=== PATIENT | male | born 1985 | race African-American/Black ===

== ENCOUNTER 2020-07-26 20:25 | Inpatient (IN) | payer OTHER ==
[2020-07-26] MEDS ORDERED: predniSONE 20 MG TABLET (UD) PO ONE (20:28)
[2020-07-26] MEDS ORDERED: ONDANSETRON *ODT* 4 MG TABLET SL ONE (20:28)
[2020-07-26] MEDS ORDERED: FAMOTIDINE 20 MG TABLET PO ONE (20:28)
--- NOTE | 2020-07-26 20:28 | PDOC ---
History of Present Illness - General Chief Complaint: Allergic Reaction Stated Complaint: ALLERGIC REACTION Time Seen by Provider: 07/26/20 20:28 History Source: Patient Exam Limitations: No Limitations - History of Present Illness Initial Comments: 34 yo M history allergies to all nuts presents after eating vegan mac and cheese. He states that his friend's mom made it, and when he asked, the friend said there were no nuts. However, he started to develop stomach upset, and when he asked the person who cooked it, they said there were nuts in it. He has history of nut allergy that typically presents with GI upset and burning, but no airway compromise. He has never had anaphylaxis, does not have an epi pen, and has never needed one. He said his voice sounded raspy before he took some children's benadryl prior to arrival. However, denies throat swelling, SOB, rash. He forced himself to vomit prior to arrival "to clear it out". Past History - Medical History Allergies/Adverse Reactions: Allergies Allergy/AdvReac Type Severity Reaction Status Date / Time peanut Allergy Intermediate Itching Verified 07/26/20 20:27 TREE NUTS Allergy Intermediate Itching Uncoded 06/28/12 17:35 Home Medications: Ambulatory Orders No Home Medications 0 dose .ROUTE UTDICT 06/28/12 Asthma: Yes (CHILDHOOD) - Psycho-Social/Smoking History Smoking Status: No Smoking History: Never smoked Number of Cigarettes Smoked Daily: 0 Review of Systems - Review of Systems Able to Perform ROS?: Yes Comments:: GENERAL/CONSTITUTIONAL: No fever or chills. No weakness. HEAD, EYES, EARS, NOSE AND THROAT: No change in vision. No ear pain or discharge. No sore throat. CARDIOVASCULAR: No chest pain or shortness of breath. RESPIRATORY: No cough, wheezing, or hemoptysis. GASTROINTESTINAL: +Nausea. No diarrhea or constipation. +Burning in stomach. +Self-induced vomiting. GENITOURINARY: No dysuria, frequency, or change in urination. MUSCULOSKELETAL: No joint or muscle swelling or pain. No neck or back pain. SKIN: No rash. NEUROLOGIC: No headache, vertigo, loss of consciousness, or change in strength/sensation. ENDOCRINE: No increased thirst. No abnormal weight change. HEMATOLOGIC/LYMPHATIC: No anemia, easy bleeding, or history of blood clots. ALLERGIC/IMMUNOLOGIC: No hives or skin allergy. *Physical Exam - Physical Exam GENERAL: Awake, alert, and fully oriented, in no acute distress. Obese HEAD: No signs of trauma EYES: PERRLA, EOMI, sclera anicteric, conjunctiva clear ENT: Auricles normal inspection, hearing grossly normal, nares patent, oropharynx clear without exudates. Moist mucosa. Airway patent, no edema noted NECK: Normal ROM, supple, no lymphadenopathy, JVD, or masses LUNGS: Breath sounds equal, clear to auscultation bilaterally. No wheezes, and no crackles HEART: Regular rate and rhythm, normal S1 and S2, no murmurs, rubs or gallops ABDOMEN: Soft, nontender, normoactive bowel sounds. No guarding, no rebound. No masses EXTREMITIES: Normal range of motion, no edema. No clubbing or cyanosis. No cor ds, erythema, or tenderness NEUROLOGICAL: Cranial nerves II through XII grossly intact. Normal speech, normal gait. Motor and sensation intact SKIN: Warm, dry, normal turgor, no rashes or lesions noted. ED Treatment Course - LABORATORY CBC & Chemistry Diagram: 07/26/20 23:05 07/26/20 23:27 Medical Decision Making - Medical Decision Making 07/26/20 20:32 Pt given pepcid, prednisone, and [id number] for his symptoms. No evidence of airway compromise. Will cont to monitor. 07/26/20 22:59 Pt with continued burning in his lower abdomen. At this point he is also complaining of feeling sweaty. Nausea did not improve with zofran ODT. Initial suspicion was not for anything cardiac given the location of the abdominal symptoms. However, now with this change in status, cardiac enzymes drawn and sent. Will check EKG, chest xray. 07/27/20 00:04 First troponin is slightly elevated. Case d/w cardiology Dr. Hall- EKG shows no ST changes at present. Will cont to monitor patient. Will give aspirin. Plan for admission. Will page hospitalist. 07/27/20 00:10 Results d/w patient. Giving ASA at present. 07/27/20 00:21 Case accepted for admission by hospitalist. 07/27/20 00:47 COVID swab sent to lab. Of note, patient states he tested negative for COVID-19 2 days ago. 07/27/20 04:11 Second troponin negative. Patient transported upstairs. Discharge - Discharge Information Problems reviewed: Yes Clinical Impression/Diagnosis: Troponin level elevated Condition: Guarded - Admission Yes - Follow up/Referral - Patient Discharge Instructions - Post Discharge Activity
--- OUTSIDE RECORDS SUMMARY | 2020-07-26 20:32 | XMS ---
:1985 Author Organization [facility] Care Team Providers Name Role Phone JOSE CARLOS Unavailable Unavailable Re-disclosure Warning The records that you are about to access may contain information from federally- assisted alcohol or drug abuse programs. If such information is present, then the following federally mandated warning applies: This information has been disclosed to you from records protected by federal confidentiality rules (42 CFR part 2). The federal rules prohibit you from making any further disclosure of this information unless further disclosure is expressly permitted by the written consent of the person to whom it pertains or as otherwise permitted by 42 CFR part 2. A general authorization for the release of medical or other information is NOT sufficient for this purpose. The Federal rules restrict any use of the information to criminally investigate or prosecute any alcohol or drug abuse patient.The records that you are about to access may contain highly sensitive health information, the redisclosure of which is protected by Article 27-F of the [facility] Public Health law. If you continue you may haveaccess to information: Regarding HIV / AIDS; Provided by facilities licensed or operated by the [facility] Office of Mental Health; or Provided by the [facility] Office for People With Developmental Disabilities. If such information is present, then the following [facility] mandated warning applies: This information has been disclosed to you from confidential records which are protected by state law. State law prohibits you from making any further disclosure of this information without the specific written consent of the person to whom it pertains, or as otherwise permitted by law. Any unauthorized further disclosure in violation of state law may result in a fine or skilled nursing sentence or both. A general authorization for the release of medical or other information is NOT sufficient authorization for further disclosure. Encounters Encounter Providers Location Date Indications Data Source(s ) Outpatient Attender: 02/05/2020 Z03.818 [facility] brittany KARAdmitter: JOSE CARLOS 03:30:00 [facility] [employer] Z03.818 Insurance Providers Payer name Policy type Policy ID Covered Covered constitution party's Policy P santos / Coverage constitution party ID relationship to [employer] Inf ormation type navarrete [employer] [id number] SP [id number] HEALTHCARE HMO 1 Problems, Conditions, and Diagnoses Code Display Name Description Problem Type Effective Data Sour ce(s) Dates Z03.818 Encounter for ENCNTR FOR OBS Diagnosis 02/05/2020 [facility] observation for FOR SUSP EXPSR TO 03:30:00 [facility] suspected OTH BIOLG AGENTS [employer] exposure to other RULED OUT biological agents ruled out Results ID Date Data Source [id number] 02/05/2020 12:00:00 AM [facility] Name Value Range Interpretation Code Description Data Martita rce(s) Supporting Document(s ) 2019-nCoV [facility] RNA XXX ABDULLAHI+probe- Imp This lab was ordered by [facility] and reported by [employer] Procedure
[2020-07-26] MEDS ORDERED: FAMOTIDINE 20 MG TABLET ONE (20:33)
[2020-07-26] MEDS ORDERED: predniSONE 20 MG TABLET (UD) ONE (20:34)
[2020-07-26] MEDS ORDERED: ONDANSETRON *ODT* 4 MG TABLET ONE (20:34)
[2020-07-26] MEDS ORDERED: MAG HYDROX/AL HYDROX/SIMETH 30 ML UNIT-DOSE CUP PO ONE (20:53)
[2020-07-26] MEDS ORDERED: MAG HYDROX/AL HYDROX/SIMETH 30 ML UNIT-DOSE CUP ONE (20:54)
[2020-07-26] MEDS ORDERED: PANTOPRAZOLE SODIUM 40 MG VIAL IVPUSH ONE (22:08)
[2020-07-26] MEDS ORDERED: SODIUM CHLORIDE 1,000 ML IV STA (22:08)
[2020-07-26] MEDS ORDERED: PANTOPRAZOLE SODIUM 40 MG VIAL ONE (22:28)
[2020-07-26] MEDS ORDERED: ONDANSETRON 4 MG/2 ML VIAL IVPUSH ONE (22:59)
[2020-07-26] MEDS ORDERED: ONDANSETRON 4 MG/2 ML VIAL ONE (23:04)
[2020-07-26 23:11] LABS: BASO % 1.9 % (0-2.0); EOS % 1.3 % (0-4.5); HEMATOCRIT 39.9 % (35.4-49); HEMOGLOBIN 13.3 GM/dl (11.7-16.9); MCH 28.6 pg (25.7-33.7); MCHC 33.4 g/dl (32.0-35.9); MEAN CELL VOLUME 85.6 fl (80-96); MEAN PLT VOLUME 8.2 fl (7.5-11.1); MONO % 4.5 % (3.8-10.2); NEUT % 83.3 % (42.8-82.8); PLATELET COUNT 306 K/MM3 (134-434); RBC 4.66 M/mm3 (4.00-5.60); RDW 13.2 % (11.9-15.9)
[2020-07-26 23:29] LABS: ALBUMIN 3.9 g/dl (3.4-5.0); BILIRUBIN,TOTAL 0.5 mg/dl (0.2-1); POTASSIUM 3.9 mmol/L (3.5-5.1); TOT PROT 6.8 g/dl (6.4-8.2)
[2020-07-26] MEDS ORDERED: ASPIRIN 81 MG CHEWABLE TABLETS PO ONE (23:55)
[2020-07-27] MEDS ORDERED: ASPIRIN 81 MG CHEWABLE TABLETS ONE (00:10)
[2020-07-27] MEDS ORDERED: ASPIRIN 81 MG CHEWABLE TABLETS PO ONE (00:10)
--- OUTSIDE RECORDS SUMMARY | 2020-07-27 02:25 | XMS ---
[...] is protected by Article 27-F of the [facility] Public Health law. If you continue you may haveaccess to information: Regarding HIV / AIDS; Provided by facilities licensed or operated by the [facility] Office of Mental Health; or Provided by the [facility] Office for People With Developmental Disabilities. If such information is present, then the following [facility] mandated warning applies: This information has been [...] law may result in a fine or fdc sentence or both. A general authorization for the release of medical or other information is NOT sufficient authorization for further disclosure. Encounters Encounter Providers Location Date Indications Data Source(s ) Outpatient Attender: 02/05/2020 Z03.818 [facility] brittany KARAdmitter: JOSE CARLOS 03:30:00 [facility] [employer] Z03.818 Insurance Providers Payer name Policy type Policy ID Covered Covered republican's Policy P santos / Coverage republican ID relationship to [employer] Inf ormation type navarrete [employer] [id number] SP [id number] 01 HEALTHCARE HMO 1 Problems, Conditions, and Diagnoses Code Display Name Description Problem Type Effective Data Sour ce(s) Dates Z03.818 Encounter for ENCNTR FOR OBS Diagnosis 02/05/2020 [facility] observation for FOR SUSP EXPSR TO 03:30:00 AM [facility] suspected OTH BIOLG AGENTS [employer] exposure to other RULED OUT biological agents ruled out Results ID Date Data Source [id number] 02/05/2020 12:00:00 AM [facility] Name Value Range Interpretation Code Description Data Martita rce(s) Supporting Document(s ) 2019-nCoV [facility] RNA XXX ABDULLAHI+probe- Imp This lab was ordered by [facility] and reported by [employer] Procedure
[2020-07-27 04:13] VITALS: BMI 42.6
[2020-07-27 07:39] VITALS: BP 125/53; PULSE 64; TEMP 97.6
--- NOTE | 2020-07-27 09:11 | HP ---
CHIEF COMPLAINT: Allergic reaction to nut ingestion HISTORY OF PRESENT ILLNESS: 34 year-old male with a PMH significant for nut allergies, presented to the ED for evaluation of stomach upset. Patient ate a meal of vegan mac and cheese prepared by his friend's mom and was initally assured there were no nuts in the dish. After eating he developed stomach and esophageal burning. He then learned there were in fact nuts in the dish. Patient has had 2 or 3 accidental ingestions of nuts this year and this reaction was the worst. Patient denies having had any difficulty breathing but his voice was raspy and he took some benadryl prior to arrival to the ED. ER course was notable for: (1) Troponin 0.31-->negative-->negative (2) Treated with mylanta, ASA, pepcid, protonix, zofran, prednisone, and NS x 1L Recent Travel: No PAST MEDICAL HISTORY: Asthma childhood PAST SURGICAL HISTORY: None reported Social History: works at [employer] Smoking: no Alcohol: no Drugs: no Family history: reviewed and non-contributory Allergies peanut Allergy (Intermediate, Verified 07/26/20 20:27) Itching TREE NUTS Allergy (Intermediate, Uncoded 06/28/12 17:35) Itching HOME MEDICATIONS: Home Medications Medication Instructions Recorded No Home Medications 0 dose .ROUTE UTDICT 06/28/12 REVIEW OF SYSTEMS CONSTITUTIONAL: Absent: fever, chills, diaphoresis, generalized weakness, malaise, loss of appetite, weight change HEENT: Absent: rhinorrhea, nasal congestion, throat pain, throat swelling, difficulty swallowing, mouth swelling, ear pain, eye pain, visual changes CARDIOVASCULAR: Absent: chest pain, syncope, palpitations, irregular heart rate, lightheadedness, peripheral edema RESPIRATORY: Absent: cough, shortness of breath, dyspnea with exertion, orthopnea, wheezing, stridor, hemoptysis GASTROINTESTINAL: +abdominal and esophageal burning-type pain Absent: abdominal pain, abdominal distension, nausea, vomiting, diarrhea, constipation, melena, hematochezia GENITOURINARY: Absent: dysuria, frequency, urgency, hesitancy, hematuria, flank pain, genital pain MUSCULOSKELETAL: Absent: myalgia, arthralgia, joint swelling, back pain, neck pain SKIN: Absent: rash, itching, pallor HEMATOLOGIC/IMMUNOLOGIC: Absent: easy bleeding, easy bruising, lymphadenopathy, frequent infections ENDOCRINE: Absent: unexplained weight gain, unexplained weight loss, heat intolerance, cold intolerance NEUROLOGIC: Absent: headache, focal weakness or paresthesias, dizziness, unsteady gait, seizure, mental status changes, bladder or bowel incontinence PSYCHIATRIC: Absent: anxiety, depression, suicidal or homicidal ideation, hallucinations. PHYSICAL EXAMINATION Vital Signs - 24 hr 07/26/20 07/26/20 07/27/20 20:28 23:40 04:06 Temperature 98 F 99.8 F H 97.9 F Pulse Rate 108 H 81 Pulse Rate [ 86 Right] Respiratory 16 18 Rate Blood Pressure 157/111 H 142/93 Blood Pressure 136/90 [Right] O2 Sat by Pulse 100 99 96 Oximetry (%) 07/27/20 07/27/20 04:08 07:38 Temperature 97.6 F Pulse Rate 64 Pulse Rate [ 74 Right] Respiratory 17 16 Rate Blood Pressure 125/53 L Blood Pressure 137/94 [Right] O2 Sat by Pulse 98 96 Oximetry (%) GENERAL: Awake, alert, and fully oriented, in no acute distress. HEAD: Normal with no signs of trauma. EYES: Pupils equal, round and reactive to light, extraocular movements intact, sclera anicteric, conjunctiva clear. No lid lag. EARS, NOSE, THROAT: Ears normal, nares patent, oropharynx clear without exudates. Moist mucous membranes. NECK: Normal range of motion, supple without lymphadenopathy, JVD, or masses. LUNGS: Breath sounds equal, clear to auscultation bilaterally. No wheezes, and no crackles. No accessory muscle use. HEART: Regular rate and rhythm, normal S1 and S2 without murmur, rub or gallop. ABDOMEN: Soft, nontender, not distended, normoactive bowel sounds, no guarding, no rebound, no masses. No hepatomegaly or splenomegaly. MUSCULOSKELETAL: Normal range of motion at all joints. No bony deformities or tenderness. No CVA tenderness. UPPER EXTREMITIES: 2+ pulses, warm, well-perfused. No cyanosis. No clubbing. No peripheral edema. LOWER EXTREMITIES: 2+ pulses, warm, well-perfused. No calf tenderness. No peripheral edema. NEUROLOGICAL: Cranial nerves II-XII intact. Normal speech. Laboratory Results - last 24 hr 07/26/20 07/26/20 07/26/20 23:02 23:05 23:27 WBC 11.0 H RBC 4.66 Hgb 13.3 Hct 39.9 MCV 85.6 MCH 28.6 MCHC 33.4 RDW 13.2 Plt Count 306 MPV 8.2 Absolute Neuts (auto) 9.2 Neutrophils % 83.3 H Lymphocytes % 9.0 Monocytes % 4.5 Eosinophils % 1.3 Basophils % 1.9 Sodium 137 Potassium 3.9 Chloride 106 Carbon Dioxide 22 Anion Gap 9 BUN 19.0 H Creatinine 1.0 Est GFR (CKD-EPI)AfAm 113.31 Est GFR (CKD-EPI)NonAf 97.76 Random Glucose 119 H Calcium 9.0 Total Bilirubin 0.5 AST 23 ALT 36 Alkaline Phosphatase 46 Creatine Kinase 98 Troponin I 0.31 H Total Protein 6.8 Albumin 3.9 Lipase 92 07/27/20 01:55 WBC RBC Hgb Hct MCV MCH MCHC RDW Plt Count MPV Absolute Neuts (auto) Neutrophils % Lymphocytes % Monocytes % Eosinophils % Basophils % Sodium Potassium Chloride Carbon Dioxide Anion Gap BUN Creatinine Est GFR (CKD-EPI)AfAm Est GFR (CKD-EPI)NonAf Random Glucose Calcium Total Bilirubin AST ALT Alkaline Phosphatase Creatine Kinase Troponin I < 0.02 Total Protein Albumin Lipase ASSESSMENT/PLAN: 34 year-old male with a PMH significant for nut allergies, admitted for severe allergic reaction following accidental nut ingestion. Anaphylaxis secondary to nut ingestion --treated with mylanta, ASA, pepcid, protonix, zofran, prednisone, and NS x 1L --observed overnight, no rebound symptoms --lengthy conversation with patient about need to carry Epipen at all times Family Medical History Family History: As Documented Visit type - Emergency Visit Emergency Visit: Yes ED Registration Date: 07/27/20 Care time: The patient presented to the Emergency Department on the above date and was hospitalized for further evaluation of their emergent condition. - New Patient This patient is new to me today: Yes Date on this admission: 07/27/20 - Critical Care Critical Care patient: No
--- NOTE | 2020-07-27 11:52 | EKG ---
Test Reason : Blood Pressure : / mmHG Vent. Rate : 087 BPM Atrial Rate : 087 BPM P-R Int : 136 ms QRS Dur : 084 ms QT Int : 380 ms P-R-T Axes : 066 015 035 degrees QTc Int : 457 ms NORMAL SINUS RHYTHM POSSIBLE LEFT ATRIAL ENLARGEMENT BORDERLINE ECG NO PREVIOUS ECGS AVAILABLE Confirmed by DELFINA GOODRICH, VALERI ([id number]) on 07/27/2020 11:51:55 AM Referred By: DR ANGLIN Confirmed By:VALERI MATHIS MD
--- NOTE | 2020-07-27 12:34 | DS ---
Physical Exam: SUBJECTIVE: Patient seen and examined. Feels well. No wheezing. No abdominal pain. Tolerating food. OBJECTIVE: Vital Signs Period Temp Pulse Resp BP Sys/Doherty Pulse Ox Last 24 Hr 97.6 F-99.8 F 64-108 16-18 125-157/53-111 96-100 PHYSICAL EXAM GENERAL: The patient is awake, alert, and fully oriented, in no acute distress. HEAD: Normal with no signs of trauma. EYES: PERRL, extraocular movements intact, sclera anicteric, conjunctiva clear. ENT: Ears normal, nares patent, oropharynx clear without exudates, moist mucous membranes. NECK: Trachea midline, full range of motion, supple. LUNGS: Breath sounds equal, clear to auscultation bilaterally, no wheezes, no crackles, no accessory muscle use. HEART: Regular rate and rhythm, S1, S2 without murmur, rub or gallop. ABDOMEN: Soft, nontender, nondistended, normoactive bowel sounds, no guarding, no rebound, no hepatosplenomegaly, no masses. EXTREMITIES: 2+ pulses, warm, well-perfused, no edema. NEUROLOGICAL: Cranial nerves II through XII grossly intact. Normal speech, gait not observed. LABS Laboratory Results - last 24 hr 07/26/20 07/26/20 07/26/20 23:02 23:05 23:27 WBC 11.0 H RBC 4.66 Hgb 13.3 Hct 39.9 MCV 85.6 MCH 28.6 MCHC 33.4 RDW 13.2 Plt Count 306 MPV 8.2 Absolute Neuts (auto) 9.2 Neutrophils % 83.3 H Lymphocytes % 9.0 Monocytes % 4.5 Eosinophils % 1.3 Basophils % 1.9 Sodium 137 Potassium 3.9 Chloride 106 Carbon Dioxide 22 Anion Gap 9 BUN 19.0 H Creatinine 1.0 Est GFR (CKD-EPI)AfAm 113.31 Est GFR (CKD-EPI)NonAf 97.76 Random Glucose 119 H Calcium 9.0 Total Bilirubin 0.5 AST 23 ALT 36 Alkaline Phosphatase 46 Creatine Kinase 98 Troponin I 0.31 H Total Protein 6.8 Albumin 3.9 Lipase 92 07/27/20 01:55 WBC RBC Hgb Hct MCV MCH MCHC RDW Plt Count MPV Absolute Neuts (auto) Neutrophils % Lymphocytes % Monocytes % Eosinophils % Basophils % Sodium Potassium Chloride Carbon Dioxide Anion Gap BUN Creatinine Est GFR (CKD-EPI)AfAm Est GFR (CKD-EPI)NonAf Random Glucose Calcium Total Bilirubin AST ALT Alkaline Phosphatase Creatine Kinase Troponin I < 0.02 Total Protein Albumin Lipase HOSPITAL COURSE: Date of Admission:07/27/20 Date of Discharge: 07/27/20 Pre hospital course 34 year-old male with a PMH significant for nut allergies, presented to the ED for evaluation of stomach upset. Patient ate a meal of vegan mac and cheese prepared by his friend's mom and was initally assured there were no nuts in the dish. After eating he developed stomach and esophageal burning. He then learned there were in fact nuts in the dish. Patient has had 2 or 3 accidental ingestions of nuts this year and this reaction was the worst. Patient denies having had any difficulty breathing but his voice was raspy and he took some b enadryl prior to arrival to the ED. ER course (2) Treated with mylanta, ASA, pepcid, protonix, zofran, prednisone, and NS x 1L Subsequent hospital course 34 year-old male with a PMH significant for nut allergies, admitted for severe allergic reaction following accidental nut ingestion. Anaphylaxis secondary to nut ingestion --treated with mylanta, ASA, pepcid, protonix, zofran, prednisone, and NS x 1L --observed overnight, no rebound symptoms --lengthy conversation with patient about need to carry Epipen at all times --patient discharged with Epi-pen twin pack and instructions on use Minutes to complete discharge: 35 Discharge Summary Problems reviewed: Yes Reason For Visit: ALLERGIC REACTION Current Active Problems Troponin level elevated (Acute) Condition: Improved - Instructions Disposition: HOME - Home Medications Comprehensive Discharge Medication List: Ambulatory Orders EPINEPHrine (EPI-PEN 0.3MG) [Epipen 0.3MG -] 0.3 mg IM ASDIR #2 pens 07/27/20 This patient is new to me today: Yes Date on this admission: 07/27/20 Emergency Visit: Yes ED Registration Date: 07/27/20 Care time: The patient presented to the Emergency Department on the above date and was hospitalized for further evaluation of their emergent condition. Critical Care patient: No - Discharge Referral Referred to [facility] No
== END 2020-07-27 13:51 | disposition home or self-care (01) | DRG 916 ==
LOC: FER 20:25 → FM/S 07-27 00:22 → UNDOADMIN 07-27 02:21
PROVIDERS: ADMIT Internal Medicine; ATTEND Nurse Practitioner Acute Care
DX: T78.05XA Anaphylactic reaction due to tree nuts and seeds, initial encounter (principal); K30 Functional dyspepsia
CPT/HCPCS: 36415; 71045-TC-FY; 80053; 82550; 83690; 84484; 85025; 93005; 99285-25; C9803; Q0162; U0003

== ENCOUNTER 2021-03-07 01:09 | Emergency (ER) | payer OTHER ==
[2021-03-07 01:20] VITALS: TEMP 97.7; BMI 42.7
[2021-03-07 03:24] LABS: BASO % 0.3 % (0-2.0); EOS % 1.9 % (0-4.5); HEMATOCRIT 38.8 % (35.4-49); HEMOGLOBIN 12.6 GM/dL (11.7-16.9); MCH 28.2 pg (25.7-33.7); MCHC 32.5 g/dl (32.0-35.9); MEAN CELL VOLUME 86.5 fl (80-96); MEAN PLT VOLUME 8.2 fl (7.5-11.1); MONO % 6.1 % (3.8-10.2); NEUT % 76.7 % (42.8-82.8); PLATELET COUNT 255 K/MM3 (134-434); RBC 4.49 M/mm3 (4.00-5.60); WHITE BLOOD COUNT 8.6 K/mm3 (4.0-10.0)
[2021-03-07 03:59] LABS: CHLORIDE 108 mmol/L (98-107); SODIUM 140 mmol/L (136-145)
[2021-03-07 04:01] LABS: ALBUMIN 3.6 g/dl (3.4-5.0); ANION GAP 1 MMOL/L (8-16); CALCIUM 8.5 mg/dL (8.5-10.1); CO2 31 mmol/L (21-32); GLUCOSE,RANDOM 163 mg/dL (74-106)
[2021-03-07 04:04] LABS: CREATININE 1.1 mg/dL (0.55-1.3); SGOT/AST 14 U/L (15-37); SGPT/ALT 37 U/L (13-61)
[2021-03-07 04:06] LABS: BILIRUBIN,TOTAL 0.2 mg/dL (0.2-1); TOT PROT 6.6 g/dl (6.4-8.2)
[2021-03-07 04:07] LABS: ALK PHOS 53 U/L (45-117)
[2021-03-07 04:28] VITALS: BP 138/83; PULSE 79
== END 2021-03-07 05:00 | disposition home or self-care (01) ==
LOC: FER 01:09
DX: F41.9 Anxiety disorder, unspecified (principal); R07.89 Other chest pain
CPT/HCPCS: 36415; 80053; 84484; 85025; 93005; 99284-25

== ENCOUNTER 2023-02-22 17:28 | Emergency (ER) | payer OTHER ==
[2023-02-22 19:00] VITALS: BP 161/119; PULSE 78; RESP 18; TEMP 98.6; BMI 43.4
== END 2023-02-22 19:09 | disposition home or self-care (01) ==
LOC: FER 17:28
DX: I10 Essential (primary) hypertension (principal); H10.33 Unspecified acute conjunctivitis, bilateral
CPT/HCPCS: 87651; 99283-25